=== PATIENT | male | born 1965 ===

== ENCOUNTER 2017-12-30 08:56 | Emergency (ER) | payer SELFPAY ==
[~2017-12-30] VITALS: Ht 182.9 cm; Wt 117.9 kg
[2017-12-30 09:07] VITALS: BP 112/75
[2017-12-30] MEDS ORDERED: LISI20TA29 PO (09:11)
[2017-12-30] MEDS ORDERED: PRAV20TA65 PO (09:11)
[2017-12-30] MEDS ORDERED: OXYC10TA67 PO (09:12)
[2017-12-30] MEDS ORDERED: ASPI-1471 PO (09:12)
--- NOTE | 2017-12-30 09:14 | ER Report ---
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 Patient states that he had a similar episode about 2-1/2 3 months ago , was placed on some pills that helped with his symptoms. He denies that he had an infection at that time. There seems to be some discussion about possible benign prostatic hypertrophy. Patient does also take OxyContin for back pain. He is tapering off of the OxyContin at this time. Further admits to history of hypertension and hypercholesterolemia for which he takes an antihypertensive as well as a hypercholesterol medication. Patient admits to bladder fullness and discomfort in the sensation that he needs to urinate but is unable to. He states that sometimes he can take 30-60 minutes to reduce urine. He denies fevers or chills he denies any chest pain or shortness of breath. REVIEW OF SYSTEMS: Constitutional: No fever, no chills. Eyes: No discharge. ENT: No sore throat. Cardiovascular: No chest pain, no palpitations. Respiratory: No cough, no shortness of breath. Gastrointestinal: Suprapubic abdominal pain Genitourinary: No hematuria. Musculoskeletal: No back pain. Skin: No rashes. Neurological: No headache. Allergies: Coded Allergies: No Known Drug Allergies (Unverified , 12/30/17) Home Meds Reported Medications Aspirin (ASPIR 81) 81 Mg Tablet.dr, 81 MG PO QDAY, TAB 12/30/17 Oxycodone Hcl 10 Mg Tab (OXYCODONE HCL 10 MG TAB) 10 Mg Tablet, 10 MG PO Q4-6H Y for PAIN, TAB 12/30/17 Pravastatin Sodium (PRAVACHOL) 20 Mg Tablet, 20 MG PO QDAY, TAB 12/30/17 Lisinopril (LISINOPRIL) 20 Mg Tablet, 20 MG PO QDAY, TAB 12/30/17 Past Medical/Surgical History Hypertension, hypercholesterolemia Constitutional Vital Sign - Last 24 Hours 12/30/17 12/30/17 12/30/17 12/30/17 09:01 09:02 09:07 09:11 Temp 98.3 Pulse 113 101 Resp 14 B/P (MAP) 106/57 (73) 112/75 112/75 (87) Pulse Ox 91 92 O2 Delivery Room Air 12/30/17 12/30/17 12/30/17 12/30/17 09:41 09:56 10:01 10:46 Pulse 97 95 92 Pulse Ox 92 87 91 92 12/30/17 10:51 Pulse 81 Pulse Ox 98 Intake and Output 12/30/17 12/30/17 12/31/17 15:00 23:00 07:00 Output Total 495 ml Balance -495 ml Physical Exam General/Constitutional: Patient is awake, alert, nontoxic and in no acute respiratory distress. Head: Normocephalic and atraumatic. Eyes: Conjunctival clear, Pupils are equal and reactive to light. Sclera are clear and anicteric. Ears:External canals are clear. Tympanic membranes are clear with normal landmarks and light reflex. Nares: No rhinorrhea or bleeding. Turbinates are pink and moist. Oropharyngeal: Mucous membranes are moist. There is no pharyngeal erythema or exudate. There are no palatal petechiae. Uvula is midline and symmetrical. Neck: Supple, no adenopathy. Cardiovascular: Heart is regular rate and rhythm without audible murmurs, rubs or gallops. Pulmonary: Lungs are clear to auscultation bilaterally. There are no wheezes, rales, or rhonchi. Chest rise is symmetrical Abdomen: Soft, suprapubic tenderness and fullness Extremities: No gross deformities, No peripheral cyanosis. Able to move all 4 extremities. Neuro: Alert and oriented X3, Skin: No rashes, skin is warm dry and well perfused. Medical Decision Making Data Points Result Diagram: 12/30/1792412/30/17 0925 Laboratory Hematology Test 12/30/17 09:25 12/30/17 10:35 Red Blood Count 4.19 M/uL (4.00-5.60) Mean Corpuscular Volume 87.0 fL (80.0-96.0) Mean Corpuscular Hemoglobin 29.8 pg (26.0-33.0) Mean Corpuscular Hemoglobin Concent 34.3 g/dL (32.0-36.0) Red Cell Distribution Width 13.8 % (11.5-14.5) Mean Platelet Volume 7.0 fL (7.2-11.1) Neutrophils (%) (Auto) 59.5 % (39.4-72.5) Lymphocytes (%) (Auto) 24.3 % (17.6-49.6) Monocytes (%) (Auto) 9.3 % (4.1-12.4) Eosinophils (%) (Auto) 5.5 % (0.4-6.7) Basophils (%) (Auto) 1.4 % (0.3-1.4) Nucleated RBC Relative Count (auto) 0.1 /100WBC Neutrophils # (Auto) 3.1 K/uL (2.0-7.4) Lymphocytes # (Auto) 1.2 K/uL (1.3-3.6) Monocytes # (Auto) 0.5 K/uL (0.3-1.0) Eosinophils # (Auto) 0.3 K/uL (0.0-0.5) Basophils # (Auto) 0.1 K/uL (0.0-0.1) Nucleated RBC Absolute Count (auto) 0.00 K/uL Sodium Level 136 mmol/L (137-145) Potassium Level 3.9 mmol/L (3.5-5.0) Chloride Level 95 mmol/L (98-107) Carbon Dioxide Level 26 mmol/L (22-30) Blood Urea Nitrogen 39 mg/dl (9-21) Creatinine 2.70 mg/dl (0.66-1.25) Glomerular Filtration Rate Calc 24.7 Random Glucose 133 mg/dl (75-110) Calcium Level 9.7 mg/dl (8.4-10.2) Total Bilirubin 0.6 mg/dl (0.2-1.3) Aspartate Amino Transf (AST/SGOT) 37 U/L (0-35) Alanine Aminotransferase (ALT/SGPT) 58 U/L (0-56) Alkaline Phosphatase 91 U/L (0-126) Total Protein 8.2 gm/dl (6.3-8.2) Albumin 4.5 g/dl (3.5-5.0) Urine Color Straw Urine Clarity Clear Urine pH 5.0 pH (4.8-9.5) Urine Specific [place] 1.013 Urine Protein Negative mg/dL (NEGATIVE) Urine Glucose (UA) Negative mg/dL (NEGATIVE) Urine Ketones Negative mg/dL (NEGATIVE) Urine Blood Negative (NEGATIVE) Urine Nitrite Negative (NEGATIVE) Urine Bilirubin Negative (NEGATIVE) Urine Urobilinogen Negative mg/dL (0.2-1.9) Urine Leukocyte Esterase Negative (NEGATIVE) Urine RBC None /HPF (0-2/HPF) Urine WBC <1 /HPF (0-5/HPF) Urine Squamous Epithelial Cells Few /LPF (NONE-FEW) Urine Bacteria Negative /HPF (NONE-FEW) Urine Hyaline Casts Few /LPF (NONE-FEW) Urine Mucus None /HPF (NONE-FEW) Urine Random Creatinine 116.7 mg/dl Urine Random Sodium 111 MEQ/L Chemistry Test 12/30/17 09:25 12/30/17 10:35 White Blood Count 5.1 k/uL (4.5-11.0) Red Blood Count 4.19 M/uL (4.00-5.60) Hemoglobin 12.5 g/dL (14.0-18.0) Hematocrit 36.4 % (42.0-52.0) Mean Corpuscular Volume 87.0 fL (80.0-96.0) Mean Corpuscular Hemoglobin 29.8 pg (26.0-33.0) Mean Corpuscular Hemoglobin Concent 34.3 g/dL (32.0-36.0) Red Cell Distribution Width 13.8 % (11.5-14.5) Platelet Count 246 K/uL (150-450) Mean Platelet Volume 7.0 fL (7.2-11.1) Neutrophils (%) (Auto) 59.5 % (39.4-72.5) Lymphocytes (%) (Auto) 24.3 % (17.6-49.6) Monocytes (%) (Auto) 9.3 % (4.1-12.4) Eosinophils (%) (Auto) 5.5 % (0.4-6.7) Basophils (%) (Auto) 1.4 % (0.3-1.4) Nucleated RBC Relative Count (auto) 0.1 /100WBC Neutrophils # (Auto) 3.1 K/uL (2.0-7.4) Lymphocytes # (Auto) 1.2 K/uL (1.3-3.6) Monocytes # (Auto) 0.5 K/uL (0.3-1.0) Eosinophils # (Auto) 0.3 K/uL (0.0-0.5) Basophils # (Auto) 0.1 K/uL (0.0-0.1) Nucleated RBC Absolute Count (auto) 0.00 K/uL Glomerular Filtration Rate Calc 24.7 Calcium Level 9.7 mg/dl (8.4-10.2) Total Bilirubin 0.6 mg/dl (0.2-1.3) Aspartate Amino Transf (AST/SGOT) 37 U/L (0-35) Alanine Aminotransferase (ALT/SGPT) 58 U/L (0-56) Alkaline Phosphatase 91 U/L (0-126) Total Protein 8.2 gm/dl (6.3-8.2) Albumin 4.5 g/dl (3.5-5.0) Urine Color Straw Urine Clarity Clear Urine pH 5.0 pH (4.8-9.5) Urine Specific [place] 1.013 Urine Protein Negative mg/dL (NEGATIVE) Urine Glucose (UA) Negative mg/dL (NEGATIVE) Urine Ketones Negative mg/dL (NEGATIVE) Urine Blood Negative (NEGATIVE) Urine Nitrite Negative (NEGATIVE) Urine Bilirubin Negative (NEGATIVE) Urine Urobilinogen Negative mg/dL (0.2-1.9) Urine Leukocyte Esterase Negative (NEGATIVE) Urine RBC None /HPF (0-2/HPF) Urine WBC <1 /HPF (0-5/HPF) Urine Squamous Epithelial Cells Few /LPF (NONE-FEW) Urine Bacteria Negative /HPF (NONE-FEW) Urine Hyaline Casts Few /LPF (NONE-FEW) Urine Mucus None /HPF (NONE-FEW) Urine Random Creatinine 116.7 mg/dl Urine Random Sodium 111 MEQ/L Urinalysis Test 12/30/17 10:35 Urine Color Straw Urine Clarity Clear Urine pH 5.0 pH (4.8-9.5) Urine Specific [place] 1.013 Urine Protein Negative mg/dL (NEGATIVE) Urine Glucose (UA) Negative mg/dL (NEGATIVE) Urine Ketones Negative mg/dL (NEGATIVE) Urine Blood Negative (NEGATIVE) Urine Nitrite Negative (NEGATIVE) Urine Bilirubin Negative (NEGATIVE) Urine Urobilinogen Negative mg/dL (0.2-1.9) Urine Leukocyte Esterase Negative (NEGATIVE) Urine RBC None /HPF (0-2/HPF) Urine WBC <1 /HPF (0-5/HPF) Urine Squamous Epithelial Cells Few /LPF (NONE-FEW) Urine Bacteria Negative /HPF (NONE-FEW) Urine Hyaline Casts Few /LPF (NONE-FEW) Urine Mucus None /HPF (NONE-FEW) Urine Random Creatinine 116.7 mg/dl Urine Random Sodium 111 MEQ/L ED Course/Re-evaluation Clinical Indication for ER IV: IV Access ED Course 12/30/2017 9:13:41 am After history and physical exam was performed differential diagnosis was formulated which includes but is not limited to outflow obstruction, acute renal injury or failure, urinary tract infection. Plan at this time will be to obtain urinalysis we will perform a bladder scan and further we'll check a CMP and CBC. 12/30/2017 12:36:46 pm patient with approximately 200 mL's of urine by Zapata catheter is approximately 1.4 mL's per hour this is after 1 L of IV hydration. Fractional excretion of sodium is 1.9% indicating acute renal injury. Was discussed with the on-call hospitalist at [facility] Dr. Velarde; who is accepted the patient for transport at this time. We are attempting to locate records from the patient's prior admission at outside hospital which detailed his need for emergent dialysis. Decision to Disposition Date: Dec 30, 2017 Decision to Disposition Time: 12:37 Depart Departure Latest Vital Signs Vital Signs Date Time Temp Pulse Resp B/P (MAP) Pulse Ox O2 Delivery O2 Flow Rate FiO2 12/30/17 10:51 81 98 12/30/17 09:07 112/75 (87) 12/30/17 09:02 98.3 14 Room Air Impression: Primary Impression: ARLEEN (acute kidney injury) Condition: Improved Disposition: XFER TO [facility] (To Dr Velarde at [facility]) ODILON CORDOVA MD Dec 30, 2017 09:14
[2017-12-30 09:33] LABS: PLATELET COUNT, AUTOMATED 246 K/uL (150-450)
[2017-12-30] MEDS ORDERED: NS(*) 0.9% 1000 ML BAG 1,000 ML IV ONE (10:00)
[2017-12-30] MEDS ORDERED: LORazepam 2 MG/ML VIAL IVP ONE (13:20)
[2017-12-30] MEDS ORDERED: HYDROmorphone(ER ONLY) 1 MG/ML IVP ONE (13:20)
== END 2017-12-30 13:36 | disposition short-term general hospital (02) ==
LOC: ER 09:01
DX: S37.009A Unspecified injury of unspecified kidney, initial encounter (principal)
CPT/HCPCS: 81001; 82570; 84300; 85025; 87088; 96361; 96374; 96375; 99285; J1170; J2060; J7030; 82040; 82247; 82310; 82374; 82435; 82565; 82947; 84075; 84132; 84155; 84295; 84450; 84460; 84520

== ENCOUNTER → 2017-12-30 | Outpatient (CLI) | payer SELFPAY ==
[~2017-12-30] MED LIST: ASPI-1471 PO; LISI20TA29 PO; OXYC10TA67 PO; PRAV20TA65 PO
== END ==
LOC: AMB 13:25
PROVIDERS: ATTEND Nurse Practitioner
DX: N19 Unspecified kidney failure (principal); Z99.2 Dependence on renal dialysis
CPT/HCPCS: A0425; A0426